=== PATIENT | female | born 1940 | race African-American/Black ===

== ENCOUNTER 2017-05-05 12:38 | Inpatient (IN) | payer MEDICARE ==
[~2017-05-05] VITALS: Ht 312.4 cm; Wt 60.8 kg
[~2017-05-05 12:38] MED LIST: ASCO-362 PO; ASPI-1158 PO; BUPR75TA3 PO; COD1CAPS7 PO; DONE23TA3 PO; LEVE500T19 PO; MAGN100T6 PO; MECL-109 PO; MIDO2.5T PO; POLY1POW3 MC; POLY255P2 PO; PRAV10TA35 PO; VITA-261 PO; lidocaine TOP
[2017-05-05] MEDS ORDERED: SODIUM CHLORIDE 0.9% 1,000 ML IV ONE (12:56)
[2017-05-05 13:30] LABS: BASOPHILS % 1.1 % (0.0-2.0); EOSINOPHILS % 3.9 % (0.0-5.0); HEMATOCRIT. 38.6 % (36.0-48.0); HEMOGLOBIN. 12.3 g/dL (12.0-16.0); LYMPHOCYTES % 24.8 % (20.0-50.0); MEAN CORPUSCULAR HEMOGLOBIN 25.6 pg (28.0-32.0); MEAN CORPUSCULAR VOLUME 80.5 fL (81.0-99.0); MEAN PLATELET VOLUME 8.5 fl (7.4-10.4); MONOCYTES % 10.7 % (2.0-8.0); NEUTROPHILS % 59.5 % (40.0-76.0); PLATELET 167 x1000/uL (130-400); RED BLOOD CELL COUNT 4.79 mill/uL (4.2-5.4)
[2017-05-05 13:32] LABS: INR 1.1
[2017-05-05 13:33] LABS: CHLORIDE 107 mEq/L (98-107)
[2017-05-05 14:54] LABS: CLARITY URINE CLEAR (CLEAR); COLOR URINE YELLOW (YELLOW); KETONES URINE NEGATIVE (NEGATIVE); LEUKOCYTE ESTERASE URINE NEGATIVE (NEGATIVE); NITRITE URINE POSITIVE (NEGATIVE); OCCULT BLOOD URINE NEGATIVE (NEGATIVE); PH URINE 7.5 (4.5-8.0); PROTEIN URINE NEGATIVE (NEGATIVE); SPECIFIC GRAVITY URINE 1.012 (1.005-1.030); UROBILINOGEN URINE 0.2 E.U./dL (0.2-1.0)
[2017-05-05] MEDS ORDERED: CEFTRIAXONE 1 G PREMIX 50 ML IV ONE (15:30)
[2017-05-05 22:30] VITALS: BP 147/65
[2017-05-05] MEDS ORDERED: ATOR10TA69 PO (23:04)
[2017-05-05] MEDS ORDERED: DONE10TA11 PO (23:05)
[2017-05-05] MEDS ORDERED: MULT1TAB63 PO (23:05)
[2017-05-06] VITALS: BP 140/48
[2017-05-06 02:44] LABS: T4 FREE 1.29 ng/dL (0.76-1.46)
[2017-05-06 04:00] VITALS: BP 117/60
[2017-05-06 08:00] VITALS: BP 140/39
[2017-05-06 08:46] LABS: BASOPHILS % 0.4 % (0.0-2.0); EOSINOPHILS % 1.6 % (0.0-5.0); HEMATOCRIT. 40.7 % (36.0-48.0); HEMOGLOBIN. 12.9 g/dL (12.0-16.0); LYMPHOCYTES % 13.8 % (20.0-50.0); MEAN CORPUSCULAR HEMOGLOBIN 25.7 pg (28.0-32.0); MEAN CORPUSCULAR VOLUME 80.9 fL (81.0-99.0); MEAN PLATELET VOLUME 8.8 fl (7.4-10.4); MONOCYTES % 6.9 % (2.0-8.0); NEUTROPHILS % 77.3 % (40.0-76.0); PLATELET 178 x1000/uL (130-400); RED BLOOD CELL COUNT 5.03 mill/uL (4.2-5.4); RED CELL DISTRIBUTION WIDTH 14.9 % (11.6-14.6)
[2017-05-06] MEDS: MULTIVITAMINS,THER W-MINERALS TABLET PO SCH ×2 (08:53→09:00)
[2017-05-06] MEDS: ASPIRIN 81MG EC TABLET PO SCH ×2 (08:53→09:00)
[2017-05-06] MEDS: LEVETIRACETAM 500MG TABLET PO SCH ×3 (08:54→17:21)
[2017-05-06] MEDS ORDERED: DONEPEZIL HCL 10MG TABLET PO SCH (09:00)
[2017-05-06] MEDS ORDERED: MULTIVITAMIN PO SCH (09:00)
[2017-05-06 09:10] LABS: CHLORIDE 105 mEq/L (98-107); PHOSPHORUS 2.3 mg/dL (2.5-4.9)
[2017-05-06 12:00] VITALS: BP 116/42
[2017-05-06] MEDS ORDERED: POTASSIUM CHLORIDE 20MEQ TABLET SR PO NR (16:00)
[2017-05-06] MEDS ORDERED: ATORVASTATIN CALCIUM 10MG TABLET PO SCH (21:00)
== END 2017-05-06 18:00 | disposition home or self-care (01) | DRG 689 ==
LOC: ER 12:38 → 6EST 16:12 → ENRESERV 19:36 → 7WST 23:26
PROVIDERS: ADMIT Internal Medicine; ATTEND Internal Medicine
DX: N39.0 Urinary tract infection, site not specified (principal); G92 Toxic encephalopathy; F03.90 Unspecified dementia, unspecified severity, without behavioral disturbance, psychotic disturbance, mood disturbance, and anxiety; E78.5 Hyperlipidemia, unspecified; I10 Essential (primary) hypertension; Z86.73 Personal history of transient ischemic attack (TIA), and cerebral infarction without residual deficits; Z79.899 Other long term (current) drug therapy; Z79.82 Long term (current) use of aspirin; Z88.0 Allergy status to penicillin; Z88.2 Allergy status to sulfonamides; M41.9 Scoliosis, unspecified
CPT/HCPCS: 36415; 70450; 71045; 80048; 80053; 81003; 83735; 84100; 84439; 84443; 85025; 85610; 93005; 96361; 96365; 99285; J0696; J7030

== ENCOUNTER 2018-01-10 17:40 | Inpatient (IN) | payer MEDICARE ==
[~2018-01-10] VITALS: Ht 160 cm; Wt 55.3 kg
[~2018-01-10 17:40] MED LIST changes: -ASCO-362 PO; +ATOR10TA69 PO; -BUPR75TA3 PO; -COD1CAPS7 PO; +DONE10TA11 PO; -DONE23TA3 PO; -MAGN100T6 PO; -MECL-109 PO; -MIDO2.5T PO; +MULT1TAB63 PO; -POLY1POW3 MC; -POLY255P2 PO; -PRAV10TA35 PO; -VITA-261 PO; -lidocaine TOP
[2018-01-10 22:12] LABS: CLARITY URINE CLEAR (CLEAR); COLOR URINE YELLOW (YELLOW); KETONES URINE NEGATIVE (NEGATIVE); LEUKOCYTE ESTERASE URINE 1+ (NEGATIVE); NITRITE URINE NEGATIVE (NEGATIVE); OCCULT BLOOD URINE NEGATIVE (NEGATIVE); PROTEIN URINE NEGATIVE (NEGATIVE); SPECIFIC GRAVITY URINE 1.011 (1.005-1.030); UROBILINOGEN URINE 0.2 E.U./dL (0.2-1.0)
[2018-01-10 22:51] LABS: BASOPHILS % 0.7 % (0.0-2.0); HEMATOCRIT. 35.8 % (36.0-48.0); HEMOGLOBIN. 11.7 g/dL (12.0-16.0); LYMPHOCYTES % 28.9 % (20.0-50.0); MEAN CORPUSCULAR HEMOGLOBIN 26.4 pg (28.0-32.0); MEAN CORPUSCULAR VOLUME 80.7 fL (81.0-99.0); MEAN PLATELET VOLUME 8.6 fl (7.4-10.4); MONOCYTES % 10.3 % (2.0-8.0); NEUTROPHILS % 58.1 % (40.0-76.0); PLATELET 174 x1000/uL (130-400); RED BLOOD CELL COUNT 4.44 mill/uL (4.2-5.4); RED CELL DISTRIBUTION WIDTH 15.5 % (11.6-14.6)
[2018-01-10 23:00] LABS: INR 1.1; PROTHROMBIN TIME 11.2 sec (9.1-11.1)
[2018-01-10 23:01] LABS: CHLORIDE 106 mEq/L (98-107)
[2018-01-11 11:40] VITALS: BP 132/68
[2018-01-11 13:00] VITALS: BP 127/50
[2018-01-11] MEDS ORDERED: MAGNESIUM/ALUMINUM HYDROXIDE/SIMETHICONE 30ML UDC PO PRN (14:45)
[2018-01-11] MEDS ORDERED: DIPHENHYDRAMINE 50MG/ML VIAL IV PRN (14:45)
[2018-01-11] MEDS ORDERED: IPRATROPIUM/ALBUTEROL 0.5-3(2.5)MG/3ML NEB INH PRN (14:45)
[2018-01-11] MEDS ORDERED: CLONIDINE 0.1MG TABLET PO PRN (14:45)
[2018-01-11] MEDS ORDERED: DOCUSATE SODIUM 100MG CAPSULE PO PRN (14:45)
[2018-01-11] MEDS ORDERED: NA PHOS,M-B/NA PHOS,DI-BA ENEMA 118ML PR PRN (14:45)
[2018-01-11] MEDS ORDERED: HYDROCODONE/ACETAMINOPHEN 5/325MG TABLET PO PRN (14:45)
[2018-01-11] MEDS ORDERED: ONDANSETRON HCL 4MG/2ML INJ IV PRN (14:45)
[2018-01-11] MEDS ORDERED: ACETAMINOPHEN 650MG SUPP PR PRN (15:36)
[2018-01-11] MEDS ORDERED: GUAIFENESIN 200MG/10ML SUGAR FREE UDC PO PRN (15:36)
[2018-01-11] MEDS ORDERED: ACETAMINOPHEN 325MG TABLET PO PRN (15:37)
[2018-01-11 16:00] VITALS: BP 127/50
[2018-01-11] MEDS ORDERED: XALAO EACHEYE (16:50)
[2018-01-11] MEDS ORDERED: TIMO5DRO32 RIGHTEYE (16:50)
[2018-01-11 20:00] VITALS: BP 132/64
[2018-01-11 20:57] VITALS: BP 118/44
[2018-01-11 22:00] VITALS: BP 120/52
[2018-01-12] VITALS (8 sets, daily range): BP systolic 118–145; BP diastolic 48–58
[2018-01-12 08:08] LABS: BASOPHILS % 0.4 % (0.0-2.0); EOSINOPHILS % 2.6 % (0.0-5.0); HEMATOCRIT. 38.2 % (36.0-48.0); HEMOGLOBIN. 12.5 g/dL (12.0-16.0); LYMPHOCYTES % 22.8 % (20.0-50.0); MEAN CORPUSCULAR HEMOGLOBIN 26.5 pg (28.0-32.0); MEAN CORPUSCULAR VOLUME 81.3 fL (81.0-99.0); MONOCYTES % 9.7 % (2.0-8.0); NEUTROPHILS % 64.5 % (40.0-76.0); PLATELET 185 x1000/uL (130-400); RED CELL DISTRIBUTION WIDTH 15.5 % (11.6-14.6)
[2018-01-12 10:26] LABS: T4 FREE 1.24 ng/dL (0.76-1.46)
[2018-01-12] MEDS ORDERED: LEVETIRACETAM 500MG TABLET PO SCH (21:00)
== END 2018-01-12 18:50 | disposition home or self-care (01) | DRG 71 ==
LOC: ER 18:08 → EDBEDREQTM 23:36 → EDBEDREQ 23:36 → 7WST 01-11 01:16 → EDBEDREQ 01-11 01:20 → EDBEDREQDT 01-11 01:20 → EDBEDREQTM 01-11 01:20 → ENRESERV 01-11 09:05 → CANRESERV 01-11 09:25 → ENRESERV 01-11 09:25 → EDBEDREQ 01-11 10:22
PROVIDERS: ADMIT Internal Medicine; ATTEND Internal Medicine
DX: G93.40 Encephalopathy, unspecified (principal); N39.0 Urinary tract infection, site not specified; G90.8 Other disorders of autonomic nervous system; W18.30XA Fall on same level, unspecified, initial encounter; E78.5 Hyperlipidemia, unspecified; R03.0 Elevated blood-pressure reading, without diagnosis of hypertension; F03.90 Unspecified dementia, unspecified severity, without behavioral disturbance, psychotic disturbance, mood disturbance, and anxiety; G40.909 Epilepsy, unspecified, not intractable, without status epilepticus; R00.1 Bradycardia, unspecified; I10 Essential (primary) hypertension; Y92.009 Unspecified place in unspecified non-institutional (private) residence as the place of occurrence of the external cause; Z98.2 Presence of cerebrospinal fluid drainage device; Z88.0 Allergy status to penicillin; Z88.1 Allergy status to other antibiotic agents; Y93.89 Activity, other specified; Y99.8 Other external cause status; Z88.2 Allergy status to sulfonamides; Z79.82 Long term (current) use of aspirin; Z79.899 Other long term (current) drug therapy
CPT/HCPCS: 36415; 70551; 71045; 72040; 72170; 73521; 80061; 82962; 83605; 83880; 84439; 84443; 84484; 93005; 93306; 93880; 99285; J1200

== ENCOUNTER 2018-08-02 05:35 | Emergency (ER) | payer MEDICARE ==
[~2018-08-02] VITALS: Ht 165.1 cm; Wt 68.0 kg
[~2018-08-02 05:35] MED LIST changes: +TIMO5DRO32 RIGHTEYE; +XALAO EACHEYE
[2018-08-02 07:30] VITALS: BP 142/62
== END 2018-08-02 08:35 | disposition home or self-care (01) ==
LOC: ER 05:35
DX: S93.401A Sprain of unspecified ligament of right ankle, initial encounter (principal); F03.90 Unspecified dementia, unspecified severity, without behavioral disturbance, psychotic disturbance, mood disturbance, and anxiety; I51.9 Heart disease, unspecified; Z88.1 Allergy status to other antibiotic agents; Z88.0 Allergy status to penicillin; Z88.2 Allergy status to sulfonamides; Z79.82 Long term (current) use of aspirin; W01.0XXA Fall on same level from slipping, tripping and stumbling without subsequent striking against object, initial encounter; Y93.89 Activity, other specified; Y92.018 Other place in single-family (private) house as the place of occurrence of the external cause
CPT/HCPCS: 73610; 99283